=== PATIENT | female | born 2000 | race African-American/Black ===

== ENCOUNTER 2022-10-21 09:23 | Emergency (ER) | payer SELFPAY ==
[2022-10-21 09:51] VITALS: BP 101/61; PULSE 72; RESP 20; TEMP 36.6; O2SAT 100
--- NOTE | 2022-10-21 12:54 | PC.NURSE ---
No answer at [id number]
== END 2022-10-21 13:50 | disposition left against medical advice (07) ==
DX: R19.7 Diarrhea, unspecified (principal)
CPT/HCPCS: 99199

== ENCOUNTER 2023-05-27 18:15 | Emergency (ER) | payer OTHER, SELFPAY ==
[2023-05-27 18:17] VITALS: BP 117/71; PULSE 64; RESP 18; TEMP 36.2; O2SAT 100
[2023-05-27 20:19] LABS: Basophils Percent Auto 0.6 % (0.2-1.2); Eosinophils Absolute Auto 0.2 K/mm3 (0-0.3); Eosinophils Percent Auto 3.6 % (0-4.4); Hematocrit 37.8 % (37.0-47.0); Hemoglobin 12.1 g/dL (12.0-15.0); Immature Granulocyte Absolute 0.01 K/mm3 (0.00-0.031); Immature Granulocyte Percent A 0.1 % (0-0.5); Lymphocytes Absolute Auto 2.05 K/mm3 (0.9-3.2); Lymphocytes Percent Auto 30.5 % (18.3-44.2); Mean Corpuscular Hemoglobin 27.4 pg (26-34); Mean Corpuscular Volume 85.7 fl (80-100); Mean Platelet Volume 9.8 fl (7.4-10.4); Monocytes Absolute Auto 0.6 K/mm3 (0.1-0.6); Monocytes Percent Auto 9.2 % (2.6-8.5); Neutrophils Absolute Auto 3.8 K/mm3 (1.3-6.7); Platelet Count Result 252 k/mm3 (150-375); Red Blood Count 4.41 M/mm3 (4.2-5.4); Red Cell Distribution Width 12.8 % (11.5-14.5); White Blood Count 6.7 K/mm3 (4.5-10.0)
[2023-05-27 20:46] LABS: Beta HCG Quantitative < 2.39 mIU/ML
--- NOTE | 2023-05-27 21:02 | ED.GENADULT ---
HPI - General Adult General Chief complaint: Vaginal Bleeding Stated complaint: vaginal bleeding- 8 weeks Time Seen by Provider: 05/27/23 19:13 History of Present Illness HPI narrative: Patient presents to the emergency department with concern for vaginal bleeding. She states her LMP was 2 months ago. She took a home test that was negative. However when she went to the office had lab work done she had a friend interpret the results and was told that she was . She comes into the emergency department today with increased vaginal bleeding. Denies abdominal pain. However when I looked at the results from the office visit her beta hCG was 0. Patient informed of this result. Patient is accompanied by her friend and she contributes to the history. Overall patient is very pleasant and her exam is benign. Patient states she has gone through 2 pads today Related Data Allergies Allergy/AdvReac Type Severity Reaction Status Date / Time No Known Allergies Allergy Verified 05/27/23 18:23 Review of Systems Constitutional: Comments: Review of systems negative except what is documented in the HPI Exam Narrative: GENERAL: Well-appearing, well-nourished, and in no acute distress. HEAD: Normocephalic, atraumatic. EYES: PERRLA and EOMI. ENT: Nares clear, no rhinorrhea or epistaxis. Mucous membranes moist. NECK: Supple. CHEST: Clear to auscultation. No respiratory distress. HEART: Regular rate and rhythm. ABDOMEN: Soft, nontender, nondistended. EXTREMITIES: Normal range of motion. No edema. SKIN: Warm, dry, no rash. NEURO: No focal deficits. Alert and oriented x3. PSYCH: Normal mood and affect. Course Course Emergency Course: Due to negative beta hCG at the outpatient office patient is very unlikely to be . However repeat beta ordered and interpreted as negative. CBC also ordered and is unremarkable. CMP and urine pending. Patient has had very minimal vaginal bleeding since arrival. Vital signs are stable. Shared decision making regarding plan to go home and follow-up with her OB. Patient has been stable. CMP was not ordered but it is does not affect or plan of care. Will discharge without results Vital Signs Vital signs: Vital Signs Temperature 36.2 C L 05/27/23 18:17 Pulse Rate 64 05/27/23 18:17 Respiratory Rate 18 05/27/23 18:17 Blood Pressure 117/71 05/27/23 18:17 Pulse Oximetry 100 05/27/23 18:17 Oxygen Delivery Room Air 05/27/23 18:17 Temperature 36.2 C L 05/27/23 18:17 Pulse Rate 64 05/27/23 18:17 Respiratory Rate 18 05/27/23 18:17 Blood Pressure 117/71 05/27/23 18:17 Pulse Oximetry 100 05/27/23 18:17 Oxygen Delivery Room Air 05/27/23 18:17 Medical Decision Making Vital Signs Vital Signs: Vital Signs Temperature 36.2 C L 05/27/23 18:17 Pulse Rate 64 05/27/23 18:17 Respiratory Rate 18 05/27/23 18:17 Blood Pressure 117/71 05/27/23 18:17 Pulse Oximetry 100 05/27/23 18:17 Oxygen Delivery Room Air 05/27/23 18:17 Temperature 36.2 C L 05/27/23 18:17 Pulse Rate 64 05/27/23 18:17 Respiratory Rate 18 05/27/23 18:17 Blood Pressure 117/71 05/27/23 18:17 Pulse Oximetry 100 05/27/23 18:17 Oxygen Delivery Room Air 05/27/23 18:17 Lab Data 05/27/23 20:14 Labs: Lab Results 05/27/23 Range/Units 20:14 WBC 6.7 (4.5-10.0) K/mm3 RBC 4.41 (4.2-5.4) M/mm3 Hgb 12.1 (12.0-15.0) g/dL Hct 37.8 (37.0-47.0) % MCV 85.7 (80-100) fl MCH 27.4 (26-34) pg MCHC 32.0 (32-36) g/dl RDW 12.8 (11.5-14.5) % Plt Count 252 (150-375) k/mm3 MPV 9.8 (7.4-10.4) fl Immature Gran % (Auto) 0.1 (0-0.5) % Neut % (Auto) 56.0 (45.5-73.1) % Lymph % (Auto) 30.5 (18.3-44.2) % [place] % (Auto) 9.2 H (2.6-8.5) % Eos % (Auto) 3.6 (0-4.4) % Baso % (Auto) 0.6 (0.2-1.2) % Lymph # (Auto) 2.05 (0.9-3.2) K/mm3 [place] # (Auto) 0.6 (0.1-0.6) K/mm3 Eos # (A
[2023-05-27 21:33] VITALS: BP 118/72; PULSE 70; RESP 17; O2SAT 100
== END 2023-05-27 21:36 | disposition home or self-care (01) ==
PROVIDERS: Emergency Provider Emergency Medicine; PCP Physician Assistant
DX: O20.9 Hemorrhage in early pregnancy, unspecified (principal); Z3A.08 8 weeks gestation of pregnancy
CPT/HCPCS: 36415; 84702; 85025; 85461; 86850; 86900; 86901; 99283